=== PATIENT | female | born 1985 | race Caucasian/White ===

== ENCOUNTER 2017-04-09 03:54 | Inpatient (IN) | payer SELFPAY ==
[~2017-04-09] VITALS: Ht 157.5 cm; Wt 77.1 kg
[~2017-04-09 03:54] MED LIST: ALBU18HF2 IH
[2017-04-09] MEDS ORDERED: IPRATROPIUM BROMIDE (0.02%) 0.5MG/2.5ML NEB HHN STA (04:29)
[2017-04-09] MEDS ORDERED: ALBUTEROL (0.083%) 2.5MG/3ML NEB HHN STA ×2 (04:29→07:39)
[2017-04-09] MEDS ORDERED: PREDNISONE 20MG TABLET PO STA (04:29)
[2017-04-09] MEDS ORDERED: METHYLPREDNISOLONE SOD SUCC 125 MG/2 ML VIAL IV STA (07:39)
[2017-04-09] MEDS ORDERED: SODIUM CHLORIDE 0.9% 1,000 ML IV ONE ×4 (07:39→09:51)
[2017-04-09] MEDS ORDERED: MAGNESIUM 2 G PREMIX 50 ML IV ONE (07:45)
[2017-04-09 08:05] LABS: CHLORIDE 108 mEq/L (98-107)
[2017-04-09 08:13] LABS: CARBON DIOXIDE 25 mEq/L (21-32)
[2017-04-09] MEDS ORDERED: KCL 20MEQ/100ML PREMIX 100 ML IV ONE (08:15)
[2017-04-09] MEDS ORDERED: POTASSIUM CHLORIDE 20MEQ TABLET SR PO ONE (08:15)
[2017-04-09 08:17] LABS: BASOPHILS % 0.2 % (0.0-2.0); EOSINOPHILS % 1.1 % (0.0-5.0); HEMATOCRIT. 37.5 % (36.0-48.0); HEMOGLOBIN. 12.9 g/dL (12.0-16.0); LYMPHOCYTES % 7.9 % (20.0-50.0); MEAN CORPUSCULAR VOLUME 90.3 fL (81.0-99.0); MEAN PLATELET VOLUME 8.8 fl (7.4-10.4); MONOCYTES % 3.1 % (2.0-8.0); NEUTROPHILS % 87.7 % (40.0-76.0); PLATELET 167 x1000/uL (130-400); RED BLOOD CELL COUNT 4.15 mill/uL (4.2-5.4); RED CELL DISTRIBUTION WIDTH 13.6 % (11.6-14.6)
[2017-04-09 08:33] LABS: HCG SCREEN NEGATIVE
[2017-04-09] MEDS ORDERED: CEFTRIAXONE 1 G PREMIX 50 ML IV ONE (10:00)
[2017-04-09] MEDS ORDERED: AZITHROMYCIN 500 MG in DEXT 5% WATER 250 ML IV SCH (10:00)
[2017-04-09 10:40] VITALS: BP 91/46
[2017-04-09 10:45] VITALS: BP 91/46
[2017-04-09] MEDS ORDERED: LORAZEPAM 2MG/ML CPJ IV PRN (11:30)
[2017-04-09] MEDS ORDERED: CLONIDINE 0.1MG TABLET PO PRN (11:30)
[2017-04-09] MEDS ORDERED: NA PHOS,M-B/NA PHOS,DI-BA ENEMA 118ML PR PRN (11:30)
[2017-04-09] MEDS ORDERED: IPRATROPIUM/ALBUTEROL 0.5-3(2.5)MG/3ML NEB INH PRN (11:30)
[2017-04-09] MEDS ORDERED: MAGNESIUM/ALUMINUM HYDROXIDE/SIMETHICONE 30ML UDC PO PRN (11:30)
[2017-04-09] MEDS ORDERED: DIPHENHYDRAMINE 50MG/ML VIAL IV PRN (11:30)
[2017-04-09] MEDS ORDERED: DOCUSATE SODIUM 100MG CAPSULE PO PRN (11:30)
[2017-04-09] MEDS ORDERED: ZOLPIDEM TARTRATE 5MG TABLET PO PRN (11:30)
[2017-04-09] MEDS ORDERED: ONDANSETRON HCL 4MG/2ML VIAL IV PRN (11:30)
[2017-04-09] MEDS ORDERED: GUAIFENESIN 200MG/10ML SUGAR FREE UDC PO PRN (11:30)
[2017-04-09 12:00] VITALS: BP 92/59
[2017-04-09] MEDS: PANTOPRAZOLE SODIUM 40 MG/VIAL IV SCH (12:27)
[2017-04-09] MEDS: GUAIFENESIN 600MG ER TABLET PO SCH ×2 (12:28→21:13)
[2017-04-09] MEDS: ZINC SULFATE 220 MG ( 50 ) CAPSULE PO SCH (12:28)
[2017-04-09] MEDS: ENOXAPARIN 40MG/0.4ML SYR SUBCUT SCH (12:28)
[2017-04-09] MEDS: ASCORBIC ACID 500 MG TABLET PO SCH ×2 (12:28→21:13)
[2017-04-09] MEDS: SODIUM CHLORIDE 0.9% 1,000 ML IV SCH ×2 (12:29→21:13)
[2017-04-09] MEDS ORDERED: LEVOFLOXACIN 500MG PREMIX 100 ML IV SCH ×2 (12:30→16:00)
[2017-04-09] MEDS: IPRATROPIUM/ALBUTEROL 0.5-3(2.5)MG/3ML NEB HHN SCH ×3 (14:07→21:01)
[2017-04-09] MEDS: METHYLPREDNISOLONE SOD SUCC 125 MG/2 ML VIAL IV SCH ×2 (14:12→21:13)
[2017-04-09 14:26] LABS: CLARITY URINE CLEAR (CLEAR); COLOR URINE YELLOW (YELLOW); GLUCOSE URINE NEGATIVE (NEGATIVE); KETONES URINE NEGATIVE (NEGATIVE); LEUKOCYTE ESTERASE URINE NEGATIVE (NEGATIVE); NITRITE URINE NEGATIVE (NEGATIVE); OCCULT BLOOD URINE NEGATIVE (NEGATIVE); PROTEIN URINE NEGATIVE (NEGATIVE); SPECIFIC GRAVITY URINE 1.012 (1.005-1.030); UROBILINOGEN URINE 0.2 E.U./dL (0.2-1.0)
[2017-04-09 14:55] LABS: *AMPHETAMINES SCREEN URINE NEGATIVE (NEGATIVE); *BARBITURATES SCREEN URINE NEGATIVE (NEGATIVE); *BENZODIAZEPINES SCREEN URINE NEGATIVE (NEGATIVE); *COCAINE SCREEN URINE NEGATIVE (NEGATIVE); CANNABINOID URINE SCREEN NEGATIVE (NEGATIVE); METHADONE URINE SCREEN NEGATIVE (NEGATIVE); OPIATES URINE SCREEN NEGATIVE (NEGATIVE); PHENCYCLIDINE URINE SCREEN NEGATIVE (NEGATIVE)
[2017-04-09] MEDS: ACETAMINOPHEN 325MG TABLET PO PRN ×2 (15:28→22:31)
[2017-04-09 16:00] VITALS: BP 102/67
[2017-04-09 16:05] LABS: CREATINE KINASE 82 IU/L (26-192); CREATINE KINASE MB FRACTION 0.9 ng/mL (0.5-3.6); TROPONIN I < 0.02 ng/mL (0.00-0.04)
[2017-04-09 20:00] VITALS: BP 104/62
[2017-04-09 23:07] LABS: CREATINE KINASE 85 IU/L (26-192); CREATINE KINASE MB FRACTION 1.7 ng/mL (0.5-3.6); TROPONIN I < 0.02 ng/mL (0.00-0.04)
[2017-04-10] VITALS: BP 107/72
[2017-04-10] MEDS: IPRATROPIUM/ALBUTEROL 0.5-3(2.5)MG/3ML NEB HHN SCH ×4 (00:45→12:41)
[2017-04-10 04:00] VITALS: BP 105/60
[2017-04-10] MEDS: METHYLPREDNISOLONE SOD SUCC 125 MG/2 ML VIAL IV SCH (06:16)
[2017-04-10] MEDS: SODIUM CHLORIDE 0.9% 1,000 ML IV SCH (06:16)
[2017-04-10] MEDS ORDERED: CEFTRIAXONE 1 G PREMIX 50 ML IV SCH (09:00)
[2017-04-10] MEDS: ZINC SULFATE 220 MG ( 50 ) CAPSULE PO SCH (09:02)
[2017-04-10] MEDS: PANTOPRAZOLE SODIUM 40 MG/VIAL IV SCH (09:02)
[2017-04-10] MEDS: ACETAMINOPHEN 325MG TABLET PO PRN (09:02)
[2017-04-10] MEDS: ASCORBIC ACID 500 MG TABLET PO SCH (09:03)
[2017-04-10] MEDS: GUAIFENESIN 600MG ER TABLET PO SCH (09:03)
[2017-04-10 11:04] VITALS: BP 109/72
[2017-04-10] MEDS: ENOXAPARIN 40MG/0.4ML SYR SUBCUT SCH (12:00)
== END 2017-04-10 12:54 | disposition home or self-care (01) | DRG 141 ==
LOC: ER 03:54 → 7WST 08:54 → ENRESERV 09:25
PROVIDERS: ADMIT Internal Medicine; ATTEND Internal Medicine
DX: J45.901 Unspecified asthma with (acute) exacerbation (principal); E87.5 Hyperkalemia; E86.0 Dehydration; E87.6 Hypokalemia
CPT/HCPCS: 36415; 71010; 80053; 80305; 81003; 82550; 82553; 83036; 83605; 84484; 84703; 85025; 87040; 87086; 93005; 94640; 94664; 96361; 96365; 96367; 96375; 96376; 99291; C9113; G0482; J0456; J0696; J1200; J1650; J1956; J2930; J3475; J3480; J7030; J7060; J7512; J7611; J7620

== ENCOUNTER 2018-02-22 09:29 | Inpatient (IN) | payer MEDICAID ==
[~2018-02-22] VITALS: Ht 160 cm; Wt 79.4 kg
[2018-02-22] MEDS ORDERED: OCD PO (09:40)
[2018-02-22] MEDS ORDERED: IRON-1 PO (09:40)
[2018-02-22] MEDS ORDERED: PNV1TABL76 PO (09:40)
[2018-02-22] MEDS ORDERED: DEXT 5%/LACTATED RINGERS 1,000 ML IV SCH (10:17)
[2018-02-22] MEDS ORDERED: MISOPROSTOL 100MCG TABLET VG PRN (10:30)
[2018-02-22] MEDS ORDERED: LIDOCAINE HCL/PF 1% 10 MG/ML 5ML VIAL IJ PRN (10:30)
[2018-02-22] MEDS ORDERED: NALOXONE HCL 0.4 MG/ML 1ML VIAL IM PRN (10:30)
[2018-02-22] MEDS ORDERED: CARBOPROST TROMETHAMINE 250 MCG/ML AMPUL IM PRN (10:30)
[2018-02-22] MEDS ORDERED: METHYLERGONOVINE MALEATE 0.2 MG/ML IM PRN ×2 (10:30→14:00)
[2018-02-22] MEDS ORDERED: PENICILLIN G POTASSIUM 5 MMU in DEXT 5% WATER 100 ML IV SCH (10:30)
[2018-02-22] MEDS ORDERED: RHO(D) IMMUNE GLOBULIN 300 MCG/SYR IM PRN ×2 (10:30→14:00)
[2018-02-22] MEDS: LACTATED RINGERS 1,000 ML IV SCH ×2 (10:37→11:16)
[2018-02-22] MEDS: BUTORPHANOL TARTRATE 2 MG/ML VIAL IV PRN ×2 (10:44→12:46)
[2018-02-22 11:06] LABS: CLARITY URINE CLEAR (CLEAR); COLOR URINE YELLOW (YELLOW); KETONES URINE NEGATIVE (NEGATIVE); LEUKOCYTE ESTERASE URINE NEGATIVE (NEGATIVE); NITRITE URINE NEGATIVE (NEGATIVE); OCCULT BLOOD URINE NEGATIVE (NEGATIVE); PROTEIN URINE NEGATIVE (NEGATIVE); SPECIFIC GRAVITY URINE 1.015 (1.005-1.030); UROBILINOGEN URINE 0.2 E.U./dL (0.2-1.0)
[2018-02-22] MEDS ORDERED: DEXT 5%/LR + PITOCIN 20UNITS/L 1,000 ML IV SCH ×2 (11:30→13:50)
[2018-02-22 11:37] LABS: BASOPHILS % 0.3 % (0.0-2.0); EOSINOPHILS % 0.8 % (0.0-5.0); HEMATOCRIT. 35.5 % (36.0-48.0); HEMOGLOBIN. 12.1 g/dL (12.0-16.0); LYMPHOCYTES % 11.4 % (20.0-50.0); MEAN CORPUSCULAR HEMOGLOBIN 31.8 pg (28.0-32.0); MEAN PLATELET VOLUME 9.4 fl (7.4-10.4); NEUTROPHILS % 80.5 % (40.0-76.0); PLATELET 207 x1000/uL (130-400); RED BLOOD CELL COUNT 3.81 mill/uL (4.2-5.4); RED CELL DISTRIBUTION WIDTH 15.3 % (11.6-14.6)
[2018-02-22 11:49] LABS: *AMPHETAMINES SCREEN URINE NEGATIVE (NEGATIVE); *BARBITURATES SCREEN URINE NEGATIVE (NEGATIVE); *BENZODIAZEPINES SCREEN URINE NEGATIVE (NEGATIVE); *COCAINE SCREEN URINE NEGATIVE (NEGATIVE); METHADONE URINE SCREEN NEGATIVE (NEGATIVE); PHENCYCLIDINE URINE SCREEN NEGATIVE (NEGATIVE)
[2018-02-22 11:50] LABS: OPIATES URINE SCREEN NEGATIVE (NEGATIVE)
[2018-02-22 11:56] LABS: CANNABINOID URINE SCREEN PRESUMTIVE POSITIVE (NEGATIVE)
[2018-02-22 13:06] LABS: RUBELLA IGG 38.2 IU/mL (4.99-10)
[2018-02-22 13:07] LABS: HEPATITIS B SURFACE ANTIGEN NEGATIVE
[2018-02-22] MEDS ORDERED: DIPHENHYDRAMINE 25MG CAPSULE PO PRN (14:00)
[2018-02-22] MEDS ORDERED: IBUPROFEN 400MG TABLET PO PRN (14:00)
[2018-02-22] MEDS ORDERED: LANOLIN OINT 0.25 GM TUBE TOP PRN (14:00)
[2018-02-22] MEDS ORDERED: PENICILLIN G POTASSIUM 2.5 MMU in DEXTROSE 5% WATER 50 ML IV SCH (14:30)
[2018-02-22 15:00] VITALS: BP 102/49
[2018-02-22 15:57] VITALS: BP 95/50
[2018-02-22] MEDS: IBUPROFEN 800MG TABLET PO PRN (19:29)
[2018-02-23] VITALS: BP 94/50
[2018-02-23 07:31] LABS: BASOPHILS % 0.3 % (0.0-2.0); EOSINOPHILS % 1.9 % (0.0-5.0); HEMOGLOBIN. 10.4 g/dL (12.0-16.0); MEAN CORPUSCULAR HEMOGLOBIN 32.2 pg (28.0-32.0); MEAN CORPUSCULAR VOLUME 92.7 fL (81.0-99.0); MEAN PLATELET VOLUME 9.1 fl (7.4-10.4); MONOCYTES % 7.8 % (2.0-8.0); PLATELET 172 x1000/uL (130-400); RED BLOOD CELL COUNT 3.24 mill/uL (4.2-5.4); RED CELL DISTRIBUTION WIDTH 14.9 % (11.6-14.6)
[2018-02-23 08:00] VITALS: BP 105/66
[2018-02-23] MEDS: IBUPROFEN 800MG TABLET PO PRN (08:46)
[2018-02-23] MEDS: PRENATAL VIT/FE FUMARATE/FA TABLET PO SCH (08:46)
[2018-02-23 16:00] VITALS: BP 106/61
[2018-02-24 00:20] VITALS: BP 101/59
[2018-02-24] MEDS: IBUPROFEN 800MG TABLET PO PRN ×2 (05:16→11:07)
[2018-02-24 08:00] VITALS: BP 107/55
[2018-02-24] MEDS ORDERED: TETANUS, DIPHTHERIA, PERTUSSIS VAC/PF 0.5ML (>7YR OLD) IM ONE (09:00)
[2018-02-24] MEDS: PRENATAL VIT/FE FUMARATE/FA TABLET PO SCH (10:54)
[2018-02-24 11:07] VITALS: BP 101/59
== END 2018-02-24 18:41 | disposition home or self-care (01) | DRG 560 ==
LOC: L&D 09:29 → OBSVTOIN 09:29 → L&D 10:15 → 7EST PP/OB 15:15
PROVIDERS: ADMIT Obstetrics & Gynecology; ATTEND Obstetrics & Gynecology
PROC: 10E0XZZ Delivery of Products of Conception, External Approach (ICD-10-PCS; principal; 2018-02-22 12:58)
DX: O77.0 Labor and delivery complicated by meconium in amniotic fluid (principal); D62 Acute posthemorrhagic anemia; J45.909 Unspecified asthma, uncomplicated; O99.02 Anemia complicating childbirth; O99.52 Diseases of the respiratory system complicating childbirth; Z37.0 Single live birth; Z3A.39 39 weeks gestation of pregnancy
CPT/HCPCS: 36415; 80305; 80349; 81003; 85025; 86592; 86703; 86762; 86850; 86900; 87340; 90715; J0595; J2540; J2590; J7060; J7120

== ENCOUNTER 2019-09-28 03:32 | Emergency (ER) | payer SELFPAY ==
[~2019-09-28] VITALS: Ht 157.5 cm; Wt 70.3 kg
[2019-09-28] MEDS ORDERED: IPRATROPIUM/ALBUTEROL 0.5-3(2.5)MG/3ML NEB HHN ONE ×2 (04:15→05:00)
[2019-09-28] MEDS ORDERED: DEXAMETHASONE 4MG TABLET PO ONE (04:15)
[2019-09-28] MEDS ORDERED: ALBUTEROL 6.7GM HFA INHALER ORI ONE (04:30)
[2019-09-28] MEDS ORDERED: IPRATROPIUM/ALBUTEROL 0.5-3(2.5)MG/3ML NEB ONE (04:50)
[2019-09-28 05:21] VITALS: BP 105/64
== END 2019-09-28 05:22 | disposition home or self-care (01) ==
LOC: ER 03:32
DX: J44.1 Chronic obstructive pulmonary disease with (acute) exacerbation (principal); J00 Acute nasopharyngitis [common cold]; R06.2 Wheezing
CPT/HCPCS: 99284; J7611; J7620; J8540

== ENCOUNTER 2023-10-26 16:15 | Emergency (ER) | payer SELFPAY ==
[~2023-10-26] VITALS: Ht 157.5 cm; Wt 77.1 kg
[2023-10-26 16:36] VITALS: O2SAT 100
[2023-10-26 17:21] LABS: BASOPHILS % 0.4 % (0.0-2.0); HEMATOCRIT. 40.8 % (36.0-48.0); HEMOGLOBIN. 13.5 g/dL (12.0-16.0); LYMPHOCYTES % 7.9 % (20.0-50.0); MEAN CORPUSCULAR HEMOGLOBIN 30.8 pg (28.0-32.0); MEAN CORPUSCULAR VOLUME 93.5 fL (81.0-99.0); MEAN PLATELET VOLUME 8.6 fl (7.4-10.4); MONOCYTES % 5.8 % (2.0-8.0); NEUTROPHILS % 84.9 % (40.0-76.0); PLATELET 229 x1000/uL (130-400); RED BLOOD CELL COUNT 4.36 mill/uL (4.2-5.4); WHITE BLOOD COUNT 15.6 x1000/uL (4.5-11.0)
[2023-10-26 17:36] LABS: ALANINE AMINOTRANSFERASE 13 IU/L (10-49); ALBUMIN 4.3 g/dL (3.2-4.8); ASPARTATE AMINOTRANSFERASE 18 IU/L (<34); BILIRUBIN TOTAL 0.5 mg/dL (0.1-1.0); CALCIUM 9.3 mg/dL (8.7-10.4); CARBON DIOXIDE 27 mEq/L (21-32); CHLORIDE 105 mEq/L (98-107); CREATININE 0.8 mg/dL (0.6-1.0); GLUCOSE 106 mg/dL (70-105); POTASSIUM 3.8 mEq/L (3.5-5.1); PROTEIN TOTAL 7.8 g/dL (6.0-8.3); SODIUM 137 mEq/L (136-145); UREA NITROGEN BLOOD 9 mg/dL (9-23)
[2023-10-26 17:46] LABS: HCG SCREEN NEGATIVE
[2023-10-26 17:54] LABS: CLARITY URINE TURBID (CLEAR); COLOR URINE YELLOW (YELLOW); GLUCOSE URINE NEGATIVE (NEGATIVE); KETONES URINE NEGATIVE (NEGATIVE); LEUKOCYTE ESTERASE URINE 3+ (NEGATIVE); NITRITE URINE POSITIVE (NEGATIVE); OCCULT BLOOD URINE 3+ (NEGATIVE); PROTEIN URINE 2+ (NEGATIVE); SPECIFIC GRAVITY URINE 1.011 (1.005-1.030); UROBILINOGEN URINE 0.2 E.U./dL (0.2-1.0)
[2023-10-26] MEDS ORDERED: SODIUM CHLORIDE 0.9% 500 ML IV ONE (18:00)
[2023-10-26] MEDS ORDERED: ONDANSETRON HCL 4MG/2ML INJ IV PRN (18:00)
[2023-10-26] MEDS ORDERED: KETOROLAC 30MG/ML VIAL IV NR (18:00)
[2023-10-26 18:15] LABS: BACTERIA URINE 2+; SQUAMOUS EPITHELIAL CELL URINE 1+ /lpf (RARE/1+)
[2023-10-26 18:16] LABS: RBC URINE 25-50 /hpf (0-2); WBC URINE TNTC /hpf (0-2)
[2023-10-26] MEDS ORDERED: CEFTRIAXONE SODIUM 1 G/VIAL IM NR (18:30)
[2023-10-26] MEDS ORDERED: KETOROLAC 60MG/2ML VIAL IM NR (21:00)
[2023-10-26] MEDS ORDERED: ONDANSETRON 4MG ODT PO ONE (21:15)
[2023-10-26] MEDS ORDERED: CEPH500T MT (21:49)
[2023-10-26 22:04] VITALS: BP 138/66
[2023-10-26 22:53] VITALS: PULSE 75; RESP 16; TEMP 98.6
[2023-10-27] MEDS ORDERED: ONDANSETRON HCL 4MG/2ML INJ IM PRN
== END 2023-10-26 22:57 | disposition home or self-care (01) ==
LOC: ER 16:15
DX: N20.0 Calculus of kidney (principal); J45.909 Unspecified asthma, uncomplicated
CPT/HCPCS: 99285; 74176; 80053; 81003; 81025; 84703; 83605; 85025; 87040; 87086; 87186; 87077; 36415; 96372; Q0162; J0696; J1885